=== PATIENT | female | born 1995 | race Caucasian/White ===

== ENCOUNTER 2022-07-21 05:41 | Emergency (ER) | payer OTHER ==
[~2022-07-21] VITALS: Ht 167.6 cm; Wt 100.2 kg
[~2022-07-21 05:41] MED LIST: LAMICTAL100 MG PO; PRENA1 PEARL S1 EACH PO
[2022-07-21 10:30] VITALS: BP 104/65
== END 2022-07-21 12:46 | disposition home or self-care (01) ==
LOC: ED 05:41
DX: O26.892 Other specified pregnancy related conditions, second trimester (principal); R10.32 Left lower quadrant pain; O34.82 Maternal care for other abnormalities of pelvic organs, second trimester; N83.291 Other ovarian cyst, right side; Z3A.14 14 weeks gestation of pregnancy; Z79.899 Other long term (current) drug therapy
CPT/HCPCS: 36415; 76815; 76817; 80053; 81003; 84702; 85025; 86850; 86900; 86901; 96361; 96374; 96375; 99284-25; J2270; J2405; J3010; J7121

== ENCOUNTER 2023-01-10 09:15 | Inpatient (IN) | payer OTHER ==
[~2023-01-10 09:15] MED LIST changes: +MILK OF MA400 MG/5 M PO; +PERCOCET 5-3251 EACH PO; +TYLENOL EXTRA500 MG PO
[2023-01-10 09:57] LABS: HEMATOCRIT 31.7 % (35.0-50.0); HEMOGLOBIN 10.7 g/dL (12.0-18.0); MCHC 33.8 g/dl (30-36); MCV 85.7 fl (81-99); RBC 3.7 M/ul (4.3-5.7)
[2023-01-10 11:06] LABS: ABO O; RH POSITIVE
[2023-01-10 11:07] LABS: ANTIBODY SCREEN NEGATIVE
[2023-01-10 11:39] LABS: AMPHETAMINES, URINE NEGATIVE (NEGATIVE); BARBITURATES, URINE NEGATIVE (NEGATIVE); BENZODIAZEPINE, URINE NEGATIVE (NEGATIVE); BUPRENORPHINE, URINE NEGATIVE (NEGATIVE); CANNABINOID, URINE POSITIVE (NEGATIVE); COCAINE, URINE NEGATIVE (NEGATIVE); ECSTASY, URINE NEGATIVE (NEGATIVE); FENTANYL, URINE NEGATIVE (NEGATIVE); METHADONE, URINE NEGATIVE (NEGATIVE); OPIATES, URINE NEGATIVE (NEGATIVE); OXYCODONE, URINE NEGATIVE (NEGATIVE); PHENCYCLIDINE, URINE NEGATIVE (NEGATIVE)
[2023-01-10 13:40] LABS: INFLUENZA B NAA NEGATIVE (NEGATIVE); RESPIRATORY SYNCYTIAL VIR NAA NEGATIVE (NEGATIVE)
--- NOTE | 2023-01-10 14:51 | PR ---
[facility] [address], [place] [address] Signed Progress Notes IP Datetime Report Generated by CPN: 01/10/2023 14:51 PROGRESS NOTES: [id number] Impression: Normal Progression of Labor; Reassuring Heart Rate Procedures: Sterile Vag Exam Plan: Continue Present Management Informed Consent Obtain: Vaginal Delivery VITAL SIGNS: [id number] Vital Signs: Reviewed EXAM: [id number] Dilatation: 4.0 Effacement: 80 Station: -2 Contractions: q 2-3 min MEMBRANES: [id number] Comments: Pt seen and examined. Doign well w/ contractions. Moderately uncomfortable. No concerns. CTXs adequate. Continue pitocin augmentation FETUS A: [id number] FHR Baseline: 120 Variability: Moderate 6-25bpm Accelerations: 15X15 Decelerations: None FHR Category: Category I Presentation: Vertex Comments on Fetus A: No evidence of metabolic acidosis FETUS B: [id number] Signing Physician: Silviano Darnell DO Copies: ~ *Electronically Signed* 01/10/23 1452 SILVIANO DARNELL (NORMA) DO PATIENT NAME: ANNE ESCOBAR PROGRESS NOTE DATE OF : 95 PHYSICIAN: SILVIANO DARNELL) DO RPT #: [id number] REPORT IS CONFIDENTIAL AND NOT TO BE RELEASED WITHOUT AUTHORIZATION
[2023-01-11 05:36] LABS: HEMATOCRIT 29.1 % (35.0-50.0); HEMOGLOBIN 9.7 g/dL (12.0-18.0); MCH 28.8 (27-36); MCHC 33.2 g/dl (30-36); MCV 86.8 fl (81-99); RBC 3.35 M/ul (4.3-5.7); RDW 13.6 (10.5-15.0)
--- NOTE | 2023-01-12 10:46 | NUR ---
EXERCISED MINISTRY OF PRESENCE PT TALKED OF DESIRE TO BE AT HOME. GAVE ENCOURAGEMENT. PT CONSENTED TO PRAYER. PRAYED FOR GOOD BEGINNINGS AND ONGOING BLESSING.
== END 2023-01-12 11:20 | disposition home or self-care (01) | DRG 806 ==
LOC: FBCO 09:15 → FBC 09:30 → FBCO 01-17 08:52
PROVIDERS: ADMIT Obstetrics & Gynecology; ATTEND Obstetrics & Gynecology
PROC: 10E0XZZ Delivery of Products of Conception, External Approach (ICD-10-PCS; principal; 2023-01-10)
PROC: 3E0R3BZ Introduction of Anesthetic Agent into Spinal Canal, Percutaneous Approach (ICD-10-PCS; 2023-01-10)
PROC: 00HU33Z Insertion of Infusion Device into Spinal Canal, Percutaneous Approach (ICD-10-PCS; 2023-01-10)
PROC: 0HQ9XZZ Repair Perineum Skin, External Approach (ICD-10-PCS; 2023-01-10)
DX: O42.02 Full-term premature rupture of membranes, onset of labor within 24 hours of rupture (principal); O99.324 Drug use complicating childbirth; Z37.0 Single live birth; O76 Abnormality in fetal heart rate and rhythm complicating labor and delivery; Z11.52 Encounter for screening for COVID-19; O70.0 First degree perineal laceration during delivery; Z3A.39 39 weeks gestation of pregnancy; O99.334 Smoking (tobacco) complicating childbirth; F17.210 Nicotine dependence, cigarettes, uncomplicated; F12.90 Cannabis use, unspecified, uncomplicated
CPT/HCPCS: 01960; 36415; 80307; 85027; 86850; 86900; 86901; 87502; A9270; U0002